=== PATIENT | female | born 1970 | race African-American/Black ===

== ENCOUNTER 2016-12-16 13:18 | Inpatient (IN) | payer BC ==
[~2016-12-16] VITALS: Ht 170.2 cm; Wt 74.8 kg
[2016-12-16] MEDS ORDERED: ONDANSETRON HCL 4MG/2ML VIAL IV STA (13:58)
[2016-12-16] MEDS ORDERED: ASPIRIN 81MG TABLET PO STA (13:58)
[2016-12-16] MEDS ORDERED: NITROGLYCERIN OINT 1GM/INCH UDPKT TD STA (13:58)
[2016-12-16] MEDS ORDERED: MORPHINE SULFATE 4 MG/ML CPJ (NOT FOR IM USE) IV STA (13:58)
[2016-12-16 14:26] LABS: HCG SCREEN NEGATIVE
[2016-12-16 14:29] LABS: BASOPHILS % 0.4 % (0.0-2.0); EOSINOPHILS % 0.9 % (0.0-5.0); HEMATOCRIT. 34.3 % (36.0-48.0); HEMOGLOBIN. 11.9 g/dL (12.0-16.0); MEAN CORPUSCULAR HEMOGLOBIN 32.5 pg (28.0-32.0); MEAN CORPUSCULAR VOLUME 93.7 fL (81.0-99.0); MEAN PLATELET VOLUME 8.4 fl (7.4-10.4); MONOCYTES % 4.9 % (2.0-8.0); NEUTROPHILS % 60.8 % (40.0-76.0); PLATELET 235 x1000/uL (130-400); RED BLOOD CELL COUNT 3.66 mill/uL (4.2-5.4); RED CELL DISTRIBUTION WIDTH 13.9 % (11.6-14.6)
[2016-12-16 14:31] LABS: D-DIMER 0.31 mg/L FEU (<0.50); PARTIAL THROMBOPLASTIN TIME 26.9 sec (23.4-31.0); PROTHROMBIN TIME 10.4 sec (9.4-11.6)
[2016-12-16 14:35] LABS: CARBON DIOXIDE 24 mEq/L (21-32); CHLORIDE 106 mEq/L (98-107); TROPONIN I < 0.02 ng/mL (0.00-0.04)
[2016-12-16 14:44] LABS: CLARITY URINE CLEAR (CLEAR); COLOR URINE YELLOW (YELLOW); GLUCOSE URINE NEGATIVE (NEGATIVE); KETONES URINE NEGATIVE (NEGATIVE); LEUKOCYTE ESTERASE URINE 2+ (NEGATIVE); NITRITE URINE NEGATIVE (NEGATIVE); OCCULT BLOOD URINE 2+ (NEGATIVE); PH URINE 7.5 (4.5-8.0); PROTEIN URINE NEGATIVE (NEGATIVE); SPECIFIC GRAVITY URINE 1.004 (1.005-1.030); UROBILINOGEN URINE 0.2 E.U./dL (0.2-1.0)
[2016-12-16] MEDS ORDERED: CEFTRIAXONE 1 G PREMIX 50 ML IV ONE (15:00)
[2016-12-16 15:09] LABS: *AMPHETAMINES SCREEN URINE NEGATIVE (NEGATIVE); *BARBITURATES SCREEN URINE NEGATIVE (NEGATIVE); *BENZODIAZEPINES SCREEN URINE NEGATIVE (NEGATIVE); *COCAINE SCREEN URINE NEGATIVE (NEGATIVE); CANNABINOID URINE SCREEN NEGATIVE (NEGATIVE); METHADONE URINE SCREEN NEGATIVE (NEGATIVE); OPIATES URINE SCREEN NEGATIVE (NEGATIVE); PHENCYCLIDINE URINE SCREEN NEGATIVE (NEGATIVE)
[2016-12-16 16:00] VITALS: BP 142/91
[2016-12-16 18:57] VITALS: BP 147/91
[2016-12-16 20:00] VITALS: BP 126/79
[2016-12-16] MEDS ORDERED: HYDROCODONE/ACETAMINOPHEN 5/325MG TABLET PO PRN (21:45)
[2016-12-16] MEDS ORDERED: DIPHENHYDRAMINE 50MG/ML VIAL IV PRN (21:45)
[2016-12-16] MEDS ORDERED: IPRATROPIUM/ALBUTEROL 0.5-3(2.5)MG/3ML NEB INH PRN (21:45)
[2016-12-16] MEDS ORDERED: CLONIDINE 0.1MG TABLET PO PRN (21:45)
[2016-12-16] MEDS ORDERED: MORPHINE SULFATE 4 MG/ML CPJ (NOT FOR IM USE) IV PRN (21:45)
[2016-12-16 23:41] LABS: CREATINE KINASE 147 IU/L (26-192); CREATINE KINASE MB FRACTION 0.9 ng/mL (0.5-3.6); TROPONIN I < 0.02 ng/mL (0.00-0.04)
[2016-12-16] MEDS: LEVOFLOXACIN 500MG PREMIX 100 ML IV SCH (23:59)
[2016-12-17] VITALS: BP 125/87
[2016-12-17 04:00] VITALS: BP 125/76
[2016-12-17 06:41] LABS: CREATINE KINASE 161 IU/L (26-192); CREATINE KINASE MB FRACTION 1.4 ng/mL (0.5-3.6); TROPONIN I < 0.02 ng/mL (0.00-0.04)
[2016-12-17 08:00] VITALS: BP 120/80
[2016-12-17] MEDS: ASPIRIN 81MG EC TABLET PO SCH (09:36)
[2016-12-17] MEDS: ENOXAPARIN 40MG/0.4ML SYR SUBCUT SCH (09:37)
[2016-12-17 10:15] LABS: CARBON DIOXIDE 25 mEq/L (21-32); CHLORIDE 106 mEq/L (98-107)
[2016-12-17] MEDS ORDERED: REGADENOSON 0.4 MG/5 ML IV ONE ×2 (10:15→11:03)
[2016-12-17] MEDS ORDERED: IOHEXOL-350 100 ML BOTTLE ONE (10:33)
[2016-12-17 12:00] VITALS: BP 103/70
[2016-12-17 16:00] VITALS: BP 109/54
[2016-12-17 20:00] VITALS: BP 111/63
[2016-12-18] MEDS: LEVOFLOXACIN 500MG PREMIX 100 ML IV SCH (00:08)
[2016-12-18 00:23] VITALS: BP 121/71
[2016-12-18 05:00] VITALS: BP 113/81
[2016-12-18 05:44] LABS: BASOPHILS % 0.5 % (0.0-2.0); EOSINOPHILS % 1.2 % (0.0-5.0); HEMATOCRIT. 34.4 % (36.0-48.0); HEMOGLOBIN. 11.9 g/dL (12.0-16.0); LYMPHOCYTES % 31.1 % (20.0-50.0); MEAN CORPUSCULAR HEMOGLOBIN 32.2 pg (28.0-32.0); MEAN CORPUSCULAR VOLUME 92.9 fL (81.0-99.0); MEAN PLATELET VOLUME 8.4 fl (7.4-10.4); MONOCYTES % 5.5 % (2.0-8.0); NEUTROPHILS % 61.7 % (40.0-76.0); PLATELET 231 x1000/uL (130-400); RED CELL DISTRIBUTION WIDTH 13.4 % (11.6-14.6)
[2016-12-18 07:02] LABS: CHLORIDE 105 mEq/L (98-107)
[2016-12-18 07:19] LABS: CARBON DIOXIDE 21 mEq/L (21-32); PHOSPHORUS 3.5 mg/dL (2.5-4.9)
[2016-12-18 08:07] VITALS: BP 116/69
[2016-12-18] MEDS: ASPIRIN 81MG EC TABLET PO SCH (08:36)
[2016-12-18] MEDS: ENOXAPARIN 40MG/0.4ML SYR SUBCUT SCH (08:37)
[2016-12-18 10:49] VITALS: BP 120/78
[2016-12-18 12:04] VITALS: BP 138/87
== END 2016-12-18 11:40 | disposition home or self-care (01) | DRG 392 ==
LOC: ER 13:43 → 5WST 15:23 → EDBEDREQ 15:28 → EDBEDREQTM 15:28 → ENRESERV 15:44
PROVIDERS: ADMIT Internal Medicine Nephrology; ATTEND Internal Medicine Nephrology
DX: K21.9 Gastro-esophageal reflux disease without esophagitis (principal); I11.9 Hypertensive heart disease without heart failure; F17.210 Nicotine dependence, cigarettes, uncomplicated; Z79.82 Long term (current) use of aspirin
CPT/HCPCS: 36415; 71010; 71275; 78452; 80048; 80053; 80061; 80305; 81001; 82550; 82553; 83690; 83735; 83880; 84100; 84443; 84484; 84703; 85025; 85379; 85610; 85730; 87077; 87086; 87186; 93005; 93017; 93306; 93970; 96374; 96375; 99291; A9500; J0696; J1650; J1956; J2270; J2405; J2785; J7050; Q9967